=== PATIENT | male | born 1975 | race Caucasian/White ===

== ENCOUNTER 2020-01-04 04:21 | Observation (INO) ==
[2020-01-04] MEDS ORDERED: PANTOPRAZOLE 40 MG VIAL IV STA (04:52)
[2020-01-04] MEDS ORDERED: KETOROLAC 30 MG/1 ML VIAL IV STA (04:52)
[2020-01-04] MEDS ORDERED: ALUM/MAG/SIMETH/LIDO VISC 1:1 30 ML BOTTLE PO STA (04:52)
[2020-01-04] MEDS ORDERED: ONDANSETRON 4 MG/2 ML VIAL IV STA (04:52)
[2020-01-04] MEDS ORDERED: SODIUM CHLORIDE 0.9% 500 ML IV STA (04:52)
[2020-01-04 04:58] LABS: Basophils % 0.1 % (0.0-0.8); Eosinophils % 0.1 % (0.00-10.9); Hematocrit 46.1 VOL% (42.0-52.0); Hemoglobin 15.8 GM/DL (14.0-18.0); Immature Granulocytes % 0.5 %; Immature Granulocytes Absolute 0.04 #; Lymphocytes # 1.3 10*3/uL (1.4-4.0); Mean Corpuscular HGB Conc 34.3 GM/DL (32-36); Mean Corpuscular Volume 92.6 FL (87-102); Mean Platelet Volume 9.7 FL (9.6-12.0); Monocytes % 3.6 % (1.7-12.7); Neutrophils % 80.7 % (38.7-73.9); Platelet Count 143 T/CUMM (130-400); Red Blood Count 4.98 MC/CUMM (3.8-5.5); Red Cell Distribution Width 12.3 % (9.3-17.3); White Blood Count 8.7 T/CUMM (4-12)
[2020-01-04 05:30] LABS: Albumin 4.7 G/DL (3.4-5.0); Bilirubin,Total 0.8 MG/DL (0.2-1.0); Calcium 9.6 MG/DL (8.5-10.1); Osmolality,Calculated 273.1 MOS/KG (273-304); Total Protein 7.8 G/DL (6.4-8.3)
[2020-01-04] MEDS ORDERED: PIPERACILLIN/TAZOBACTAM 3,375 MG VIAL IV ONE (05:40)
[2020-01-04] MEDS ORDERED: PIPERACILLIN/TAZOBACTAM 3,375 MG in SODIUM CHLORIDE 0.9% 100 ML IV STA (05:40)
[2020-01-04] MEDS ORDERED: SODIUM CHLORIDE 0.9% 100 ML IV ONE (05:41)
[2020-01-04 05:42] LABS: Apearance,Urine CLEAR (Clear); Bacteria,Urine Occasional /HPF (Few); Bilirubin,Urine Negative (Negative); Blood, Urine Negative (Negative); Glucose,Urine (UA) Negative (Negative); Hyaline Casts,Urine 3 /LPF (0-3); Ketones,Urine Negative (Negative); Mucus,Urine Occasional /LPF (Occasional); Nitrite,Urine Negative (Negative); Protein,Urine Negative; RBC,Urine 2 /HPF (0-4); Urine Color Yellow (Yellow); Urine Specific Gravity 1.017 (1.001-1.035); Urine Urobilinogen < 2.0 EU/DL (0.2-1.0); WBC,Urine <1 /HPF (0-6)
[2020-01-04] MEDS ORDERED: HYDROmorphone 2 MG/1 ML VIAL IV PRN ×2 (06:53→11:28)
[2020-01-04] MEDS ORDERED: ONDANSETRON 4 MG/2 ML VIAL IV PRN ×2 (06:53→11:28)
[2020-01-04] MEDS: SODIUM CHLORIDE 0.9% 1,000 ML IV SCH ×2 (07:44→14:06)
[2020-01-04] MEDS ORDERED: NON-FORMULARY MEDICATION (Omeprazole 40 MG) PO SCH (09:00)
[2020-01-04] MEDS ORDERED: TISSUE ADHESIVE 1 EACH APPLICATOR TOP ONE (09:11)
[2020-01-04] MEDS ORDERED: ceFAZolin 1,000 MG VIAL ONE (09:52)
[2020-01-04] MEDS ORDERED: LIDOCAINE 1%/EPI INJ 20 ML VIAL ONE (10:53)
[2020-01-04] MEDS ORDERED: LIDOCAINE 2% 5 ML VIAL ONE (11:17)
[2020-01-04] MEDS ORDERED: propofoL 200 MG/20 ML VIAL IV ONE (11:17)
[2020-01-04] MEDS ORDERED: ePHEDrine 50 MG/ML VIAL ONE (11:17)
[2020-01-04] MEDS ORDERED: MIDAZOLAM 2 MG/2 ML VIAL ONE (11:18)
[2020-01-04] MEDS ORDERED: fentaNYL 100 MCG/2 ML VIAL ONE (11:18)
[2020-01-04] MEDS ORDERED: ONDANSETRON 4 MG/2 ML VIAL ONE (11:18)
[2020-01-04] MEDS ORDERED: KETOROLAC 30 MG/1 ML VIAL ONE (11:18)
[2020-01-04] MEDS ORDERED: GLYCOPYRROLATE 0.4 MG/2 ML VIAL ONE (11:18)
[2020-01-04] MEDS ORDERED: SEVOFLURANE 1 UNIT/15 MINUTE INH ONE (11:18)
[2020-01-04] MEDS ORDERED: ACETAMINOPHEN 1,000 MG/100 ML VIAL IV ONE (11:18)
[2020-01-04] MEDS ORDERED: NEOSTIGMINE 10 MG/10 ML VIAL ONE (11:19)
[2020-01-04] MEDS ORDERED: ROCURONIUM 100 MG/10 ML VIAL IV ONE (11:19)
[2020-01-04] MEDS ORDERED: PHENYLEPHRINE 1 MG/10 ML SYRINGE IV ONE (11:19)
[2020-01-04] MEDS: ATORVASTATIN 40 MG TABLET PO SCH (12:17)
[2020-01-04] MEDS: SERTRALINE 25 MG TABLET PO SCH (12:17)
[2020-01-04] MEDS: OLMESARTAN 20 MG TABLET PO SCH (12:17)
[2020-01-04] MEDS: PIPERACILLIN/TAZOBACTAM 3,375 MG in SODIUM CHLORIDE 0.9% 100 ML IV SCH ×2 (14:05→21:43)
[2020-01-04] MEDS: traMADol 50 MG TABLET PO PRN (21:44)
[2020-01-05] MEDS: SODIUM CHLORIDE 0.9% 1,000 ML IV SCH ×3 (06:00→15:28)
[2020-01-05 06:35] LABS: Basophils # 0.1 10*3/uL (0.0-0.2); Basophils % 0.6 % (0.0-0.8); Eosinophils # 0.1 10*3/uL (0.0-0.87); Eosinophils % 0.6 % (0.00-10.9); Hematocrit 40.5 VOL% (42.0-52.0); Immature Granulocytes % 0.6 %; Immature Granulocytes Absolute 0.05 #; Lymphocytes # 2.3 10*3/uL (1.4-4.0); Lymphocytes % 25.9 % (21.2-54.2); Mean Corpuscular HGB Conc 34.1 GM/DL (32-36); Mean Corpuscular Volume 95.5 FL (87-102); Monocytes % 8.3 % (1.7-12.7); Platelet Count 118 T/CUMM (130-400); Red Blood Count 4.24 MC/CUMM (3.8-5.5); Red Cell Distribution Width 12.7 % (9.3-17.3)
[2020-01-05 06:36] LABS: Albumin 3.5 G/DL (3.4-5.0); Bilirubin,Total 2.3 MG/DL (0.2-1.0); Calcium 8.7 MG/DL (8.5-10.1); Osmolality,Calculated 278.4 MOS/KG (273-304); Total Protein 6.5 G/DL (6.4-8.3)
[2020-01-05 06:38] LABS: Hemoglobin 13.8 GM/DL (14.0-18.0)
[2020-01-05 06:41] LABS: Hypochromasia 1+; Platelet Estimate Decreased
[2020-01-05] MEDS: PIPERACILLIN/TAZOBACTAM 3,375 MG in SODIUM CHLORIDE 0.9% 100 ML IV SCH ×2 (06:43→14:28)
[2020-01-05] MEDS ORDERED: PANTOPRAZOLE 40 MG VIAL IV SCH (09:00)
[2020-01-05] MEDS: ATORVASTATIN 40 MG TABLET PO SCH (10:09)
[2020-01-05] MEDS: OLMESARTAN 20 MG TABLET PO SCH (10:09)
[2020-01-05] MEDS: SERTRALINE 25 MG TABLET PO SCH (10:09)
[2020-01-05 11:29] VITALS: BP 112/62
[2020-01-05] MEDS: traMADol 50 MG TABLET PO PRN (12:18)
== END 2020-01-05 15:56 | disposition home or self-care (01) ==
LOC: N.EDINP 04:21 → N.ED 04:21 → N.3E 06:35
PROVIDERS: ADMIT Student in an Organized Health Care Education/Training Program; ATTEND Student in an Organized Health Care Education/Training Program
PROC: LAPCHOL (2020-01-04 09:22)